=== PATIENT | female | born 2000 ===

== ENCOUNTER 2022-05-21 03:43 | Emergency (ER) | payer SELFPAY ==
[2022-05-21 03:54] VITALS: BP 128/98; PULSE 80; RESP 14; TEMP 36.7; O2SAT 98
== END 2022-05-21 03:54 ==
PROVIDERS: PCP Family Medicine
DX: Z53.21 Procedure and treatment not carried out due to patient leaving prior to being seen by health care provider (principal)
CPT/HCPCS: 99199

== ENCOUNTER 2024-07-05 18:46 | Emergency (ER) | payer SELFPAY ==
--- NOTE | ~2024-07-05 | US_ITS ---
FIRST TRIMESTER transvaginal ULTRASOUND 07/05/2024 20:50 CDT Ordering provider: Blanca Garcia MD History: . possible miscarriage . Comparison: None. FINDINGS: INTRAUTERINE GESTATIONAL SAC: Present. Measures 1.36 cm. Hypoechoic area seen anterior to the gestational sac measuring 1.4 x 0.8 x 1 cm which may be subchori onic hemorrhage. YOLK SAC: Present. POLE: Present. Measures 0.3 cm which is equal to 5 weeks and 6 days. LILIANA is March 01 2025 heart rate is 113 bpm. UTERUS: The uterus measures 8.8x 3.6x 4.7 cm in length which is within normal limits. No myometrial m asses. FREE FLUID: None. OVARIES: Normal in size with the right measuring 2.9x 3.4x 2.4 cm and the left measuring 2.8x 2.5x 1. 8 cm Doppler flow is demonstrated within both ovaries. ADNEXAL MASSES: None. IMPRESSION: Single live fetus of 5 weeks and 6 days. LILIANA is March 01, 2025. Small hypoechoic area adjacent to the gestational sac which may indicate subchorionic hemorrhage. Fol low-up advised. Reviewed, dictated and finalized at location A. IMPRESSION: Single live fetus of 5 weeks and 6 days. LILIANA is March 01, 2025. Small hypoechoic area adjacent to the gestational sac which may indicate subcho rionic hemorrhage. Follow-up advised.
[2024-07-05 18:51] VITALS: BP 150/103; PULSE 103; RESP 16; TEMP 36.4; O2SAT 100
[2024-07-05 19:28] LABS: Basophils Percent Auto 0.4 % (0.2-1.2); Eosinophils Percent Auto 0.4 % (0-4.4); Hematocrit 38.4 % (37.0-47.0); Hemoglobin 12.1 g/dL (12.0-15.0); Immature Granulocyte Absolute 0.03 K/mm3 (0.00-0.031); Immature Granulocyte Percent A 0.3 % (0-0.5); Lymphocytes Absolute Auto 2.85 K/mm3 (0.9-3.2); Lymphocytes Percent Auto 26.1 % (18.3-44.2); Mean Corpuscular HGB Conc 31.5 g/dl (32-36); Mean Corpuscular Hemoglobin 26.9 pg (26-34); Mean Corpuscular Volume 85.3 fl (80-100); Mean Platelet Volume 10.9 fl (7.4-10.4); Monocytes Absolute Auto 0.9 K/mm3 (0.1-0.6); Monocytes Percent Auto 8.2 % (2.6-8.5); Neutrophils Absolute Auto 7.1 K/mm3 (1.3-6.7); Neutrophils Percent Auto 64.6 % (45.5-73.1); Platelet Count Result 355 k/mm3 (150-375); Red Cell Distribution Width 13.7 % (11.5-14.5); White Blood Count 10.9 K/mm3 (4.5-10.0)
[2024-07-05 19:37] LABS: Alanine Aminotransferase 14 U/L (6-35); Albumin Level 4.2 g/dL (3.5-5.1); Alkaline Phosphatase 71 U/L (38-126); Anion Gap 12 mmol/L (4-12); Aspartate Amino Transferase 18 U/L (14-36); Bilirubin,Total 0.1 mg/dL (0.2-1.3); Blood Urea Nitrogen 10 mg/dL (7-17); Calcium 8.9 mg/dL (8.4-10.2); Carbon Dioxide 19 mmol/L (22-30); Chloride 105 mmol/L (98-107); Estimated CRCL calculation 152 ml/min; Estimated Glomerular Filt Rate > 60; Glucose 110 mg/dL (65-110); Potassium 3.7 mmol/L (3.4-5.0); Sodium 136 mmol/L (137-145)
[2024-07-05 19:57] LABS: BEDSIDEPREGUCG Positive (Negative)
--- NOTE | 2024-07-05 19:59 | ED_ITS ---
HPI - Female Genitourinary General Chief complaint: Vaginal Bleeding Stated complaint: Poss miscarrige maybe 1 mth preg Time Seen by Provider: 07/05/24 19:45 History of Present Illness HPI Narrative: Patient believes she is about 5 weeks presents here with large bleeding earlier today with severe cramping, this has largely subsided as well the bleeding. Related Data Allergies Allergy/AdvReac Type Severity Reaction Status Date / Time No Known Allergies Allergy Verified 07/05/24 18:47 Review of Systems 2 Review of Systems: All systems reviewed & are unremarkable except as noted in HPI and below Exam 2 Narrative: EXAMINATION OF ORGAN SYSTEMS/BODY AREAS: Constitutional: Vital signs per nursing GENERAL:[No acute distress, non-toxic appearing.] HEAD: Normal with no signs of head trauma. EYES: EOMI, conjunctiva normal ENT: Hearing grossly intact LUNGS: Nonlabored breathing. HEART: [Regular rate and rhythm] ABD: [Soft], [nontender to palpation] : No active hemorrhage EXT: Normal range of motion SKIN: [No rashes or lesions.] NEURO: [Alert and oriented x 3. No gross focal sensory or strength deficits.] PSYCH: Normal affect Course Vital Signs Vital signs: Vital Signs Temperature 97.6 F 07/05/24 18:51 Pulse Rate 103 H 07/05/24 18:51 Respiratory Rate 16 07/05/24 18:51 Blood Pressure 150/103 H 07/05/24 18:51 Pulse Oximetry 100 07/05/24 18:51 Temperature 97.6 F 07/05/24 18:51 Pulse Rate 103 H 07/05/24 18:51 Respiratory Rate 16 07/05/24 18:51 Blood Pressure 150/103 H 07/05/24 18:51 Pulse Oximetry 100 07/05/24 18:51 MDM - Female Genitourinary MDM Narrative Medical decision making narrative: 24F here with early p/w concern for miscarriage vs ectopic; no confirmed IUP and had severe pain and vaginal bleeding now resolving. I will obtain TVUS r/o ectopic. Rh- so will be given Rhogam. Ultrasound thankfully does show intrauterine likely 5 weeks 6 days with heart rate 113. Discussed return precautions, threatened miscarriage, and importance that in future pregnancies or injuries she will need RhoGAM. Patient and her partner agreeable to this plan Lab Data 07/05/24 19:22 07/05/24 19:22 Labs: Lab Results 07/05/24 07/05/24 Range/Units 19:22 19:55 WBC 10.9 H (4.5-10.0) K/mm3 RBC 4.50 (4.2-5.4) M/mm3 Hgb 12.1 (12.0-15.0) g/dL Hct 38.4 (37.0-47.0) % MCV 85.3 (80-100) fl MCH 26.9 (26-34) pg MCHC 31.5 L (32-36) g/dl RDW 13.7 (11.5-14.5) % Plt Count 355 (150-375) k/mm3 MPV 10.9 H (7.4-10.4) fl Immature Gran % (Auto) 0.3 (0-0.5) % Neut % (Auto) 64.6 (45.5-73.1) % Lymph % (Auto) 26.1 (18.3-44.2) % [place] % (Auto) 8.2 (2.6-8.5) % Eos % (Auto) 0.4 (0-4.4) % Baso % (Auto) 0.4 (0.2-1.2) % Lymph # (Auto) 2.85 (0.9-3.2) K/mm3 [place] # (Auto) 0.9 H (0.1-0.6) K/mm3 Eos # (Auto) 0.0 (0-0.3) K/mm3 Baso # (Auto) 0.0 (0.0-0.1) K/mm3 Abs Immat Gran (auto) 0.03 (0.00-0.031) K/mm3 Absolute Neuts (auto) 7.1 H (1.3-6.7) K/mm3 Absolute Nucleated RBC 0.000 (0.0-0.012) K/mm3 Nucleated RBC % 0.0 (0.0-0.2) % Sodium 136 L (137-145) mmol/L Potassium 3.7 (3.4-5.0) mmol/L Chloride 105 (98-107) mmol/L Carbon Dioxide 19 L (22-30) mmol/L Anion Gap 12 (4-12) mmol/L BUN 10 (7-17) mg/dL Creatinine 0.59 L (0.7-1.0) mg/dL Estim Creat Clear Calc 152 ml/min Estimated GFR > 60 (59 - ) Glucose 110 (65-110) mg/dL Calcium 8.9 (8.4-10.2) mg/dL Total Bilirubin 0.1 L (0.2-1.3) mg/dL AST 18 (14-36) U/L ALT 14 (6-35) U/L Alkaline Phosphatase 71 (38-126) U/L Total Protein 8.0 (6.3-8.2) g/dL Albumin 4.2 (3.5-5.1) g/dL Beta HCG, Quant 9403.50 mIU/ML POC Urine HCG, Qual Positive (Negative) Blood Type A Negative Antibody Screen Negative Doses of RhIg Required 1 Discharge Plan Discharge Clinical Impression: Threatened Patient Disposition: Home Condition: Stable Instructions: Threatened Miscarriage (ED) Additional Instructions: Please follow up with the OBGYN; you can always return for any further issues especially if you notice any heavy bleeding, more than 1 pad an hour for 2 hours straight, or anything else concerning. Patient Language: Setswana Prescriptions: New PNV #[id number] 30 mg iron-10 mg iron-1 mg capsule 1 cap PO DAILY Qty: 30 0RF Follow-up/Referrals: Anton Parr MD [Physician] - 2 Days Jaime Walter MD [Physician] -
--- OUTSIDE RECORDS SUMMARY | 2024-07-05 20:17 | XMS_ITS | Encounter Summary ---
Author Organization [facility] Address [address] [place] [address] Care Team Providers Care Porcelain Enamel Sprayer Name Role Phone Stephenie Gagnon KATERIN Primary Care Provider [phone] Stephenie Gagnon KATERIN Unavailable Encounter Details Date Type Department Care Team (Late st Contact Info) Description 06/18/2022 ComCrowdt Message Enc [facility] Medical Group Multispecialty Care [facility] [address] [place] [phone] Stephenie GagnonKATERIN [address] [place] [address] Anne Marie Coronel Social History Tobacco Use Types Packs/Day Years Used Date Smoking Tobacco: Never Smokeless Tobacco: Never Comments:provider to address Alcohol Use Standard Drinks/Week Comments Yes 0 (1 standard drink = 0.6 oz pur e alcohol) occ AUDIT-C Answer Date Recorded Q1: How often do you have a drink containing alc ohol? Monthly or less 12/12/2019 Average Number of Drinks Not on file 020 Frequency of Binge Drinking Not on file 11/22 PHQ-2 Answer Date Recorded PHQ-2 Score - If the patient scores above 3, please move on to questions 3-9 0 01/28/2021 Comments No Sex and Gender Information Value Date Recorded Sex Assigned at Not on file Legal Sex Female 5:46 PM CDT Gender Identity Not on file Sexual Orientation Not on file documented as of this encounter Plan of Treatment Upcoming Encounters Date Type Department Care Team (Late st Contact Info) Description 07/07/2024 11:20 AM CDT Office Visit [facility] Medical Group Multispecialty [facility] [address] [place] [phone] Stephenie Gagnon DNP [address] [place] [address] documented as of this encounter Visit Diagnoses Not on filedocumented in this encounter Additional Health Concerns Infection Onset Date Last Indicated Resolved Time MRSA 02/10/2017 02/10/2017 Assessment Noted Time PHQ-9 Depression Total Score: 0 01/29/20 21 9:56 AM BYPRODUCT ENGINEER documented as of this encounter Care Teams Porcelain Enamel Sprayer Relationship Specialty Start Date End Date Stephenie Gagnon DNP PCP - General NURSE PRACTITIONER 11/28/21 Stephenie Gagnon DNP NURSE PRACTITIONER 11/28/21 documented as of this encounter
--- OUTSIDE RECORDS SUMMARY | 2024-07-05 20:17 | XMS_ITS | Clinical Summary ---
Author Organization [facility] Address [address] [place] [address] Care Team Providers Care Sample Maker Name Role Phone ChelsiParris chakraborty KATERIN Primary Care Provider [phone] ChelsiParris chakraborty KATERIN Unavailable Allergies No known active allergies Medications hydrOXYzine (ATARAX) 25 MG tabletIndications: Anxiety Take 1 tablet (25 mg total) by mouth daily as needed for Itching. 20 tablet 05/01/19 23 Active DULoxetine (CYMBALTA) 30 MG capsuleIndications :Reactive depression,Anxiety ,Counseling, unspecified take 1 capsule by mouth nightly 30 capsule 06/29/19 24 Active azithromycin (ZITHROMAX) 250 MG tabletIndications: Acute maxillary sinusitis, recurrence not specified 2 PO x 1 on day one, and then 1 PO QD x 4 6 tablet 02/08/20 24 Active rosuvastatin (CRESTOR) 20 MG tabletIndications: Other hyperlipidemia Take 1 tablet (20 mg total) by mouth nightly at bedtime. 30 tablet 05/24/19 25 Active drospirenone-ethin yl estradiol (LORYNA) 3-0.02 MG tabletIndications: Menorrhagia with regular cycle Take 1 tablet by mouth daily. 28 tablet 07/05/19 25 Active drospirenone-ethin yl estradiol (LORYNA) 3-0.02 MG tabletIndications: Menorrhagia with regular cycle Take 1 tablet by mouth daily. Anne Marie must schedule OV/PAP for additional refills 28 tablet 03/03/ 025 Discontin ued(Reord er) Active Problems Problem Noted Date Diagnosed Date Bacterial vaginosis 02/15/2024 Nicotine dependence due to vaping tobacco produc t 08/12/2022 Anxiety 11/22/2021 Reactive depression 11/22/2021 Menorrhagia with regular cycle 12/12/2019 Other hyperlipidemia 12/12/2019 Adult BMI 40.0-44.9 kg/sq m 12/12/2019 Counseling for control, oral contraceptive s 12/11/2019 Resolved Problems Problem Noted Date Diagnosed Date Resolved Date Encounter for well woman exdago m with routine gynecological exam 02/05/2024 02/08/2024 Encounter for gynecological examination with Papanicolaou smear of cervix 08/01/2022 08/04/2022 Annual physical exam 12/12/2019 021 Annual physical exam 12/11/2019 024 Immunizations Immunization Administration Dates Next Due Fluzone 6 Months+ Quad (0.5 mL Prefilled Syringe ) 01/28/2021 Family History Medical History Relation Comments Arthritis Maternal Grandfather Asthma Sister Relation Status Comments Father Alive Maternal Grandfather Mother Alive Sister Social History Tobacco Use Types Packs/Day Years Used Date Smoking Tobacco: Never Passive Smoke Exposure: Current Smokeless Tobacco: Never Comments:provider to address Alcohol Use Standard Drinks/Week Comments Yes 8 (1 standard drink = 0.6 oz pur [...] on file Sexual Orientation Not on file Last Filed Vital Signs Vital Sign Reading Time Taken Comments Blood Pressure 118/78 02/08/2024 12:59 PM COUNSELLORS Pulse 88 02/08/2024 12:59 PM COUNSELLORS Temperature 36.7 C (98.1 F) 02/08/2024 12:59 PM COUNSELLORS Respiratory Rate 20 01/28/2021 9:53 AM COUNSELLORS Oxygen Saturation 99% 02/08/2024 12:59 PM COUNSELLORS Inhaled Oxygen Concentration - - Weight 119.7 kg (264 lb) 02/08/2024 12:59 PM COUNSELLORS Height 162.6 cm (5' 4 ) 09/26/2022 2:03 PM CDT Body Mass Index 45.32 09/26/2022 2:03 PM CDT Plan of Treatment Upcoming Encounters Date Type Department Care Team (Late st Contact Info) Description 07/07/2024 11:20 AM CDT Office Visit [facility] Medical Group Multispecialty Care [facility] [address] [place] [phone] Parris Gagnon DNP [address] [place] [address] [phone] Health Maintenance Due Date Last Done Comments DTaP, Tdap and Td Vaccines (6 - Tdap) 01/13/2012 10/15/2006, 05/03/2002, 2001, Additional history exists HPV Vaccines (1 - 3-dose series) 01/13/2016 Chlamydia Screening Females ages 16-24 2017 Meningococcal B Vaccine (1 of 2 - Standard) 2017 Hepatitis C 2019 COVID-19 Vaccine ( - season) 2023 08/16/2020 PHQ-2 (Physician [place]) 03/23/2024 Annual Physical 02/07/2025 02/08/2024, 07/22, 01/28/2021, Additional history exists Cervical Cancer Screening Pap Smear (Age 21 to 29) Every 3 Years 02/07/2027 02/08/2024 Cervical Cancer Screening 02/07/2027 Hepatitis B Vaccines Completed 05/03/2002, 2001, 2001 Pneumococcal Vaccine: Pediatrics (0 to 5 Years) and At-Risk Patients (6 to 49 Years) Aged Out 12/12/2004, 2001, 2001, Additional history exists No longer eligible based on patient's age to complete this topic Meningococcal Vaccine Aged Out No joce elysia eligible based on patient's age to complete this topic RSV Immunizations Under 20 Months Aged Out No longer eligible based on patient's age to complete this topic Procedures Procedure Name Priority Date/Time Associated Diagnosis Comments CYTOPATH CERV/VAG THIN LAYER Routine 02/08/2024 4:31 PM COUNSELLORS from Last 3 Months or Most Recently Relevant to Health Maintenance Results * Cytopath Cerv/Vag Thin Layer (02/08/2024 4:31 PM COUNSELLORS) THIN PREP PAP [address] [phone] Department of Pathology Pathology Report CERVICAL/VAGINAL PAP SMEAR REPORT Name: ANNE MARIE CORONEL Age: 10 2000 (Age: 24) Location: [facility] Sex: F Collected Date: 02/08/2024 [facility] #: [id number] Date Received: 02/09/2024 Date Reported: 02/15/2024 Provider: PARRIS GAGNON DNP INTERPRETATION CERVICAL/ENDOCERVI ZAN: SATISFACTORY FOR EVALUATION. ENDOCERVICAL/TRANS FORMATION ZONE COMPONENT ABSENT. NEGATIVE FOR INTRAEPITHELIAL LESION OR MALIGNANCY. SHIFT IN BACTERIAL DA SUGGESTIVE OF BACTERIAL VAGINOSIS. Electronically Signed Out [facility] KELLY Bowman (ASCP) CLINICAL HISTORY (Z01.419) ENCOUNTER FOR WELL WOMAN EXAMINATION WITH ROUTINE GYNECOLOGICAL EXAMINATION PAP TEST SCREENING ThinPrep Pap Test with HR HPV testing in patient > 21 years with ASC-US diagnosis. Date of Last Menstrual Period: 01/21/2024 Menstrual Status: Regular SPECIMEN SUBMITTED CERVICAL/ENDOCERVI ZAN Specimen Received:1 Thin Prep Vial, Image Assisted Pap (SMD) Please note: The Pap smear is not a diagnostic test. It is a screening test. Negative results on combined screening (Pap test and HPV-DNA) have a high negative predictive value (99.1-100 percent) for cervical cancer. The pap test is not effective in detecting cervical adenocarcinoma. [facility] () [facility] 02/08/2024 4:31 PM COUNSELLORS 02/09/2024 4:31 PM COUNSELLORS Comment:CERVICAL/ENDOCERVICA L us Parris Gagnon DNP PATHOLOGY/CYTOLOGY ORDERABLES Fi nal Result [facility] ([facility] [address] [id number], from Last 3 Months or Most Recently Relevant to Health Maintenance Additional Health Concerns Infection Onset Date Last Indicated MRSA 02/10/2017 02/10/2017 Insurance AET Care Teams Sample Maker Relationship Specialty Start Date End Date Parris Gagnon DNP PCP - General NURSE PRACTITIONER 11/28/21 Parris Gagnon DNP NURSE PRACTITIONER 11/28/21
--- OUTSIDE RECORDS SUMMARY | 2024-07-05 20:17 | XMS_ITS | Encounter Summary ---
Author Organization [facility] Address [address] [place] [address] Care Team Providers Care Block Engraver Name Role Phone Chelsi, Stephenie CONKLIN Primary Care Provider [phone] Stephenie Gagnon KATERIN Unavailable Encounter Details Date Type Department Care Team (Late st Contact Info) Description 03/20/2022 Flypapert Message Enc [facility] Medical Group Priority Care - Johnnie Lazaro [address] [place] [phone] Stephenie Gagnon DNP [address] [place] [address] Anxiety medicine Social History Tobacco Use Types Packs/Day Years [...] Description 07/07/2024 11:20 AM CDT Office Visit [facility] Medical Group Multispecialty [address] [phone] Stephenie Gagnon DNP [address] [place] [address] documented as of this encounter Visit Diagnoses Not on filedocumented in this encounter Additional Health Concerns Infection Onset Date Last Indicated Resolved Time MRSA 02/10/2017 02/10/2017 Assessment Noted Time PHQ-9 Depression Total Score: 0 01/29/20 21 9:56 AM ALGEBRAIST documented as of this encounter Care Teams Block Engraver Relationship Specialty Start Date End Date Stephenie Gagnon DNP PCP - General NURSE PRACTITIONER 11/28/21 Stephenie Gagnon DNP NURSE PRACTITIONER 11/28/21 documented as of this encounter
--- OUTSIDE RECORDS SUMMARY | 2024-07-05 20:17 | XMS_ITS | Encounter Summary ---
Author Organization [facility] Address [address] [place] [address] Care Team Providers Care Conservation Planner Name Role Phone ChelsiStephenie chakraborty KATERIN Primary Care Provider [phone] Stephenie Gagnon KATERIN Unavailable Encounter Details Date Type Department Care Team (Late st Contact Info) Description 03/03/2024 MetaSolv Message Enc [facility] Medical Group Multispecialty Care [facility] [address] [place] [phone] Stephenie GagnonKATERIN [address] [place] [address] Weight loss medication. Social History Tobacco Use Types Packs/Day Years [...] Description 07/07/2024 11:20 AM CDT Office Visit [facility] Medical Group Multispecialty [address] [phone] Stephenie Gagnon DNP [address] [place] [address] documented as of this encounter Visit Diagnoses Not on filedocumented in this encounter Additional Health Concerns Infection Onset Date Last Indicated Resolved Time MRSA 02/10/2017 02/10/2017 Assessment Noted Time PHQ-9 Depression Total Score: 0 01/29/20 21 9:56 AM LABOR COMMISSIONER documented as of this encounter Care Teams Conservation Planner Relationship Specialty Start Date End Date Stephenie Gagnon DNP PCP - General NURSE PRACTITIONER 11/28/21 Stephenie Gagnon DNP NURSE PRACTITIONER 11/28/21 documented as of this encounter
--- NOTE | 2024-07-05 21:14 | PC.NURSE ---
patient to ultrasound at this time
[2024-07-05] MEDS: RHO(D) IMMUNE GLOBULIN 300 MCG/2 ML SYRINGE IM (21:45)
[2024-07-05 21:48] VITALS: BP 132/78; PULSE 93; RESP 20; TEMP 36.6; O2SAT 100
== END 2024-07-05 22:13 | disposition home or self-care (01) ==
PROVIDERS: Emergency Provider Emergency Medicine
DX: O20.0 Threatened abortion (principal); Z3A.01 Less than 8 weeks gestation of pregnancy
CPT/HCPCS: 36415; 76817; 80053; 81025; 84702; 85025; 85461; 86850; 86900; 86901; 90384; 96372; 99284; J2790